=== PATIENT | male | born 1990 | race Caucasian/White ===

== ENCOUNTER → 2017-06-15 | Outpatient (CLI) | payer BC ==
[~2017-06-15] MED LIST: CIPROFLOXIN HC2.5 ML OPHTHALMIC; KEFLEX500 MG PO; MOTION RELIEF25 MG PO; NORCO 5-325 TA1 EACH PO; PERCOCET 5-3251 EACH PO; PRILOSEC 20 MG20 MG PO; ZOFRAN ODT4 MG PO
== END ==
LOC: M.RAD 15:35
DX: R06.02 Shortness of breath (principal)

== ENCOUNTER → 2017-06-22 | Outpatient (CLI) | payer BC ==
--- NOTE | 2017-06-24 10:50 | PF ---
[address] [address] PULMONARY FUNCTION REPORT Name: CELIA NOLEN Room: [facility]#: [id number] Admission: 06/22/17 Attend Phys: Shaheen Andre MD Discharge: Date of : 89 Report #: [id number] THIS REPORT FOR: //name// CC: Shaheen Andre REFERRING PHYSICIAN: Dr. Andre. SPIROMETRY: FEV1/FVC ratio 80%. The FEV1 was 4.64 liters, at 99% predicted. Post-bronchodilator, the forced vital capacity was 5.66 liters, at 90% predicted. The [id number] was 90% predicted. Total lung capacity 6.98 liter at 96% of predicted. DLCO was 83% predicted. IMPRESSION: The above pulmonary function test did not show evidence of obstructive or restrictive defects, with normal DLCO and lung volumes. <ELECTRONICALLY SIGNED> By: Karthik Hernandez MD 06/24/17 1050 [id number] Hernandez MD /nt
== END ==
LOC: M.PUL 12:55
DX: J45.20 Mild intermittent asthma, uncomplicated (principal)